=== PATIENT | female | born 1965 | race Two or more races ===

== ENCOUNTER 2017-06-17 14:12 | Day surgery (SDC) | payer BC ==
[2017-06-17] MEDS ORDERED: PROPOFOL 20 ML (16:18)
[2017-06-17] MEDS ORDERED: LIDOCAINE 2% (SDV) 5 ML INJ (16:19)
== END 2017-06-17 18:30 | disposition home or self-care (01) ==
LOC: GIL 14:12
DX: R14.0 Abdominal distension (gaseous) (principal); I10 Essential (primary) hypertension; E66.9 Obesity, unspecified; Z68.36 Body mass index [BMI] 36.0-36.9, adult
CPT/HCPCS: 43239; 88305; 88312